=== PATIENT | female | born 1985 | race Hispanic/Latino ===

== ENCOUNTER 2019-07-21 12:31 | Outpatient (CLI) | payer BC ==
[2019-07-21 12:43] LABS: Basophils # (Auto) 0.1 K/mm3 (0.0-0.1); Basophils % (Auto) 0.7 % (0.0-1.8); Eosinophils # (Auto) 0.2 K/mm3 (0.0-0.4); Eosinophils % (Auto) 2.1 % (0.0-4.3); Hematocrit 41.1 % (30.3-42.9); Lymphocytes # (Auto) 1.8 K/mm3 (1.2-5.4); Lymphocytes % (Auto) 21.3 % (13.4-35.0); Mean Corpuscular HGB Conc 34 % (30-34); Mean Corpuscular Volume 91 fl (79-97); Monocytes # (Auto) 0.6 K/mm3 (0.0-0.8); Monocytes % (Auto) 6.7 % (0.0-7.3); Platelet Count 223 K/mm3 (140-440); Red Blood Count 4.53 M/mm3 (3.65-5.03); Red Cell Distribution Width 12.7 % (13.2-15.2)
[2019-07-21 13:17] LABS: Alanine Aminotransferase 12 units/L (7-56); Albumin 4.5 g/dL (3.9-5); BUN/Creatinine Ratio 13; Blood Urea Nitrogen 9 mg/dL (7-17); Calcium 9.9 mg/dL (8.4-10.2); Hemolysis Index 4; Uric Acid 4.3 mg/dL (3.5-7.6)
--- NOTE | 2019-07-21 13:57 | XRay Report ---
LEFT FOOT 3 VIEWS INDICATION / CLINICAL INFORMATION: Pain in unspecified left toe. COMPARISON: None available. FINDINGS: BONES and JOINT(S): No acute fracture or subluxation. No significant arthritis. SOFT TISSUES: No significant abnormality. ADDITIONAL FINDINGS: None. IMPRESSION: No significant abnormality of the left foot. Signer Name: Levi Santacruz MD Signed: 07/21/2019 1:52 PM Workstation Name: [id number]
== END 2019-07-21 12:32 | disposition home or self-care (01) ==
LOC: XRAY 12:31
DX: M79.675 Pain in left toe(s) (principal); F41.9 Anxiety disorder, unspecified; F32.9 Major depressive disorder, single episode, unspecified
CPT/HCPCS: 36415; 80053; 84443; 84550; 85025

== ENCOUNTER 2019-08-18 11:58 | Outpatient (CLI) | payer BC ==
--- NOTE | 2019-08-18 13:04 | XRay Report ---
LEFT FOOT 3 VIEWS INDICATION: G57.62Lesion of plantar nerve, left lower limb. COMPARISON: 07/21/2019 FINDINGS: No acute skeletal abnormality. No focal soft tissue calcifications or foreign bodies. There is soft t issue swelling at the proximal left second toe. IMPRESSION: 1. No acute skeletal abnormality. 2. Soft tissue swelling proximal left second toe. Signer Name: Carlos Carrasco MD Signed: 08/18/2019 1:00 PM Workstation Name: [id number]
== END 2019-08-18 11:59 | disposition home or self-care (01) ==
LOC: XRAY 11:58
PROVIDERS: ATTEND Podiatrist Foot & Ankle Surgery
DX: M79.89 Other specified soft tissue disorders (principal); G57.62 Lesion of plantar nerve, left lower limb

== ENCOUNTER 2020-03-12 15:30 | Emergency (ER) | payer BC ==
[2020-03-12] MEDS ORDERED: ONDANSETRON 4 MG/2 ML INJ IV ONE (15:58)
[2020-03-12] MEDS ORDERED: MORPHINE 4 MG/1 ML INJ IV ONE (15:58)
--- NOTE | 2020-03-12 16:02 | Emergency Department Report ---
ED Headache HPI - General Chief Complaint: Headache Stated Complaint: HEADACHE Time Seen by Provider: 03/12/20 15:43 Source: patient, family - History of Present Illness Initial Comments: Patient is 34 years old female with history of psoriatic arthritis. Patient presented to the ER complaining of headache for approximately 2 weeks. Patient described her headache as throbbing, intermittent mainly to the occipital area. Patient denied any recent head injury or trauma. Patient also denied any fever or chills. No neck pain. Patient also denied any weakness, numbness or tingling sensation. Timing/Duration: 1 week (2) Quality: moderate Head Injury Location: occipital Recent Head Trauma: no recent headache/trauma Associated Symptoms: denies symptoms Allergies/Adverse Reactions: Allergies No Known Allergies Allergy (Unverified 07/21/19 12:31) ED Review of Systems ROS: Stated complaint: HEADACHE Other details as noted in HPI Comment: All other systems reviewed and negative Constitutional: denies: chills, fever ENT: denies: throat pain, dental pain, congestion Respiratory: denies: cough, shortness of breath, SOB with exertion, SOB at rest Cardiovascular: denies: chest pain, palpitations, dyspnea on exertion Gastrointestinal: denies: abdominal pain, nausea, vomiting Musculoskeletal: denies: back pain Neurological: headache. denies: weakness, numbness, paresthesias, confusion, abnormal gait ED Past Medical Hx - Past Medical History Previous Medical History?: Yes Additional medical history: vaginal delivery x 2, psoriatic arthritis - Surgical History Past Surgical History?: No - Social History Smoking Status: Never Smoker Substance Use Type: Alcohol ED Physical Exam - General Limitations: No Limitations General appearance: alert, in no apparent distress - Head Head exam: Present: atraumatic, normocephalic, normal inspection - Eye Eye exam: Present: normal appearance - ENT ENT exam: Present: normal exam, normal orophraynx, mucous membranes moist - Neck Neck exam: Present: normal inspection, full ROM. Absent: tenderness, meningismus, lymphadenopathy, thyromegaly - Respiratory Respiratory exam: Present: normal lung sounds bilaterally - Cardiovascular Cardiovascular Exam: Present: regular rate, normal rhythm, normal heart sounds - GI/Abdominal GI/Abdominal exam: Present: soft, normal bowel sounds. Absent: distended, tenderness, guarding, rebound, rigid, organomegaly, mass, bruit, pulsatile mass, hernia - Extremities Exam Extremities exam: Present: normal inspection, full ROM, normal capillary refill. Absent: tenderness, pedal edema, calf tenderness - Back Exam Back exam: Present: normal inspection, full ROM. Absent: CVA tenderness (R), CVA tenderness (L) - Neurological Exam Neurological exam: Present: alert, oriented X3, CN II-XII intact, normal gait. Absent: motor sensory deficit - Psychiatric Psychiatric exam: Present: normal mood - Skin Skin exam: Present: warm, dry, intact, normal color ED Course Vital Signs 03/12/20 03/12/20 03/12/20 15:36 16:36 16:39 Temperature 98.2 F Pulse Rate 83 84 Respiratory 16 16 18 Rate Blood Pressure 119/83 Blood Pressure 138/87 [Left] O2 Sat by Pulse 97 99 Oximetry 03/12/20 17:36 Temperature Pulse Rate 70 Respiratory 18 Rate Blood Pressure Blood Pressure 128/75 [Left] O2 Sat by Pulse 97 Oximetry ED Medical Decision Making - Lab Data Result diagrams: 03/12/20 15:58 03/12/20 15:58 - Radiology Data Radiology results: report reviewed - Medical Decision Making Patient is 34 years old female with history of psoriatic arthritis. Patient presented to the ER complaining of headache for approximately 2 weeks. Patient described her headache as throbbing, intermittent mainly to the occipital area. Patient denied any recent head injury or trauma. Patient also denied any fever or chills. No neck pain. Patient also denied any weakness, numbness or tingling sensation. Patient remained stable in the ER. Patient received morphine and fentanyl for pain. Patient developed skin rash from morphine and given Benadryl and Solu- Medrol. Patient stated that her headache is better now. No clinical or laboratory evidence of meningitis. Ear exam showed bilateral serous otitis media. Patient stated that she had a COVID-19 test result pending. Patient given prescription for prednisone and [place] and advised to follow-up with primary doctor in the next 2 to 3 days and to return to the ER if she develop any new symptoms. Critical care attestation.: If time is entered above; I have spent that time in minutes in the direct care of this critically ill patient, excluding procedure time. ED Disposition Clinical Impression: Intractable headache Disposition: - TO HOME OR SELFCARE Is pt being admited?: No Condition: Stable Instructions: Acute Headache (ED) Referrals: PRIMARY CARE, [Primary Care Provider] - 3-5 Days
[2020-03-12] MEDS ORDERED: methylPREDNISolone Sod Succinate 125 MG/2 ML INJ ONE (16:24)
[2020-03-12] MEDS ORDERED: diphenhydrAMINE 50 MG/ML VIAL ONE (16:24)
[2020-03-12 16:37] LABS: BUN/Creatinine Ratio 14; Blood Urea Nitrogen 11 mg/dL (7-17); Calcium 8.8 mg/dL (8.4-10.2); Hemolysis Index 28
[2020-03-12] MEDS ORDERED: methylPREDNISolone Sod Succinate 125 MG/2 ML INJ IV ONE (16:38)
[2020-03-12] MEDS ORDERED: diphenhydrAMINE 50 MG/ML VIAL IV ONE (16:38)
[2020-03-12 16:45] LABS: Basophils % (Auto) 0.4 % (0.0-1.8); Eosinophils # (Auto) 0.2 K/mm3 (0.0-0.4); Eosinophils % (Auto) 1.8 % (0.0-4.3); Hematocrit 36.9 % (30.3-42.9); Hemoglobin 13.2 gm/dl (10.1-14.3); Lymphocytes % (Auto) 20.2 % (13.4-35.0); Mean Corpuscular HGB Conc 36 % (30-34); Mean Corpuscular Volume 91 fl (79-97); Monocytes # (Auto) 0.6 K/mm3 (0.0-0.8); Platelet Count 217 K/mm3 (140-440); Red Blood Count 4.06 M/mm3 (3.65-5.03); Red Cell Distribution Width 12.3 % (13.2-15.2)
[2020-03-12 17:08] LABS: Bacteria,Urine 1+ /HPF (Negative); Bilirubin,Urine NEG (Negative); Blood,Urine NEG (Negative); Color,Urine Yellow (Yellow); Mucus,Urine FEW /HPF; Protein,Urine <15 mg/dL mg/dL (Negative); Urobilinogen,Urine < 2.0 mg/dL (<2.0)
[2020-03-12 17:11] LABS: WBC,Urine < 1.0 /HPF (0.0-6.0)
[2020-03-12] MEDS ORDERED: fentaNYL 100 MCG/2 ML INJ IV ONE ×2 (17:30→18:37)
[2020-03-12] MEDS ORDERED: fentaNYL 100 MCG/2 ML INJ ONE (17:35)
--- NOTE | 2020-03-12 17:52 | Cat Scan Report ---
CT head/brain wo con INDICATION / CLINICAL INFORMATION: 34 years Female; MAIN. TECHNIQUE: Routine CT head without contrast. All CT scans at this location are performed using CT dos e reduction for ALARA by means of automated exposure control. COMPARISON: None. FINDINGS: BRAIN / INTRACRANIAL CONTENTS: The brain demonstrate appropriate attenuation. The ventricular system is within normal limits in size and configuration. No CT evidence of acute intracranial hemorrhage or significant mass effect. ORBITS: No significant abnormality of visualized orbits. SINUSES / MASTOIDS: No significant abnormality in the visualized paranasal sinuses or mastoid air sindy ls. CRANIOCERVICAL JUNCTION: No significant abnormality. ADDITIONAL FINDINGS: None. IMPRESSION: 1. There is no CT evidence of acute intracranial process. Signer Name: Peyman Crabtree MD Signed: 03/12/2020 5:48 PM Workstation Name: [id number]
[2020-03-12 18:55] VITALS: BP 121/70
== END 2020-03-12 19:02 | disposition home or self-care (01) ==
LOC: ED 15:30
DX: R51 Headache (principal); H65.93 Unspecified nonsuppurative otitis media, bilateral; Z88.8 Allergy status to other drugs, medicaments and biological substances
CPT/HCPCS: 36415; 70450; 80048; 81001; 84703; 85025; 96374; 96375; 96376; 99284; J1200; J2270; J2405; J2930; J3010